=== PATIENT | male | born 1950 | race Caucasian/White ===

== ENCOUNTER 2017-07-13 20:21 | Emergency (ER) | payer BC ==
[2017-07-13] MEDS ORDERED: PROPARACAINE 0.5% OPHTH DROPS 15 ML LEFTEYE STA (20:35)
[2017-07-13 20:36] VITALS: BP 146/77
[2017-07-13] MEDS ORDERED: ERYTHROMYCIN OPHTH OINT 1 GM TUBE LEFTEYE STA (20:46)
--- NOTE | 2017-07-13 20:48 | ED Physician Documentation ---
PD HPI OPHTHO - Stated complaint Stated Complaint: LT EYE PX - Chief complaint Chief Complaint: Heent - History obtained from History obtained from: Patient - History of Present Illness Timing - onset: Other (He was working this evening at home with a saws all around the door frame feels like something stuck in his left eye. His vision is unaffected.) Review of Systems Constitutional: denies: Fever, Chills Eyes: reports: Discharge, Irritation. denies: Loss of vision, Decreased vision , Photophobia Ears: denies: Loss of hearing, Ear pain PD PAST MEDICAL HISTORY - Past Medical History Past Medical History: No - Past Surgical History Past Surgical History: Yes HEENT: Cataracts - Present Medications Home Medications: Ambulatory Orders Medication Instructions Recorded Confirmed Erythromycin Base [Erythromycin] 1 applic OP 5XD 7 Days oint...g. 07/13/17 - Allergies Allergies/Adverse Reactions: Allergies Allergy/AdvReac Type Severity Reaction Status Date / Time No Known Drug Allergies Allergy Verified 07/13/17 20:44 - Social History Does the pt smoke?: No Smoking Status: Never smoker - Immunizations Immunizations are current?: Yes PD ED PE NORMAL - Vitals Vital signs reviewed: Yes - General General: Alert and oriented X 3, No acute distress - HEENT HEENT: PERRL, EOMI, Other (No corneal foreign body or conjunctival foreign body is seen including in the fornices, especially in the upper fornix using an everted lid exam after noting that he does have a skating rink type area fluorescein uptake to the superomedial cornea on the left.) - Neck Neck: Supple, no meningeal sign, No bony TTP - Neuro Neuro: Alert and oriented X 3 - Psych Psych: Normal mood, Normal affect Results - Vitals Vitals: Vital Signs - 24 hr 07/13/17 07/13/17 20:25 20:34 Temperature 36.4 C L Heart Rate 77 Respiratory 16 Rate Blood Pressure 146/77 H O2 Saturation 93 Oxygen O2 Source Room air PD MEDICAL DECISION MAKING - ED course ED course: It looks like he probably had a superior corneal foreign body or conjunctival foreign body that caused an area of skating rink type corneal abrasion with fluorescein uptake but there is no evidence of persistent foreign body. The eye was flushed. Started on erythromycin topical. Departure - Departure Disposition: 01 Home, Self Care Clinical Impression: Corneal abrasion, left Qualifiers: Encounter type: initial encounter Qualified Code(s): S05.02XA - Injury of conjunctiva and corneal abrasion without foreign body, left eye, initial encounter Condition: Good Record reviewed to determine appropriate education?: Yes Instructions: ED Eye Injury Corneal Abrasion Follow-Up: Isaac Cehrry MD [Provider Admit Priv/Credential] - Within 3 Days Prescriptions: Erythromycin Base [Erythromycin] 1 applic OP 5XD 7 Days oint...g. Comments: Your blood pressure was elevated today on check into the emergency department. This does not mean that you have hypertension, it is a common phenomenon to come to the emergency department and have elevated blood pressure. I recommend that you see your primary care physician within the week to have it rechecked when you are feeling better.
== END 2017-07-13 21:07 | disposition home or self-care (01) ==
LOC: ED 20:21
DX: S05.02XA Injury of conjunctiva and corneal abrasion without foreign body, left eye, initial encounter (principal); W20.8XXA Other cause of strike by thrown, projected or falling object, initial encounter; Y92.239 Unspecified place in hospital as the place of occurrence of the external cause; R03.0 Elevated blood-pressure reading, without diagnosis of hypertension
CPT/HCPCS: 99283; J3490

== ENCOUNTER 2022-10-15 14:58 | Emergency (ER) | payer BC ==
[2022-10-15 15:38] LABS: BASOPHILS % (AUTO) 0.3 %; EOSINOPHILS % (AUTO) 0.3 %; HCT - HEMATOCRIT 42.6 % (42.0-52.0); HGB - HEMOGLOBIN 14.4 g/dL (14.0-18.0); LYMPHOCYTES # (AUTO) 1.2 10^3/uL (1.5-3.5); LYMPHOCYTES % (AUTO) 11.9 %; MEAN CORPUSCULAR HEMOGLOBIN 31.9 pg (27.0-31.0); MEAN CORPUSCULAR HGB CONC 33.8 g/dL (32.0-36.0); MEAN CORPUSCULAR VOLUME 94.5 fL (80.0-94.0); MEAN PLATELET VOLUME 9.3 fL (7.4-11.4); MONOCYTES # (AUTO) 0.9 10^3/uL (0.0-1.0); MONOCYTES % (AUTO) 8.9 %; NEUTROPHILS # (AUTO) 7.6 10^3/uL (1.5-6.6); NEUTROPHILS % (AUTO) 78.3 %; PLT - PLATELET COUNT 204 10^3/uL (130-450); RED BLOOD COUNT 4.51 10^6/uL (4.70-6.10); RED CELL DISTRIBUTION WIDTH 12.3 % (12.0-15.0); WHITE BLOOD COUNT 9.7 x10^3/uL (4.8-10.8)
[2022-10-15 15:51] LABS: ALBUMIN 4.3 g/dL (3.2-5.5); ALBUMIN/GLOBULIN RATIO 1.7 (1.0-2.2); BILIRUBIN,TOTAL 0.6 mg/dL (0.2-1.0); CREATININE 1.3 mg/dL (0.6-1.2); POTASSIUM 3.6 mmol/L (3.5-5.0); TOTAL PROTEIN 6.9 g/dL (6.7-8.2)
[2022-10-15] MEDS ORDERED: ONDANSETRON 4 MG/2 ML VIAL IVP STA (16:08)
[2022-10-15] MEDS ORDERED: HYDROmorphone 1 MG/ML CARPUJECT IVP STA (16:08)
[2022-10-15] MEDS ORDERED: KETOROLAC 30 MG/ML VIAL IVP STA (16:08)
[2022-10-15] MEDS ORDERED: SODIUM CHLORIDE 0.9% 1,000 ML IV STA (16:08)
--- NOTE | 2022-10-15 16:11 | ED Physician Documentation ---
History of Present Illness - Stated complaint Stated Complaint: MALE /NAUSE - Chief complaint Chief Complaint: Abd Pain - History obtained from History obtained from: Patient - History of Present Illness Timing: Today Pain level max: 7 Pain level now: 6 - Additonal information Additional information: Patient is a 72-year-old male who presents to the emergency department with left flank pain that started today. He has a history of multiple renal stones in the past. He states that this feels similar. Has had lithotripsy in the past. No hematuria. No dysuria. No fevers. Patient states that he used to have a urologist in [place], but she moved away. Does not currently have a urologist. Review of Systems Constitutional: denies: Fever, Chills GI: denies: Vomiting, Diarrhea, Hematemesis, Bloody / black stool : denies: Dysuria, Frequency, Hesitancy Skin: denies: Rash Musculoskeletal: denies: Neck pain, Back pain Neurologic: denies: Headache PD PAST MEDICAL HISTORY - Past Medical History Past Medical History: No - Past Surgical History Past Surgical History: Yes HEENT: Cataracts - Present Medications Home Medications: Ambulatory Orders Medication Instructions Recorded Confirmed Erythromycin Base [Erythromycin] 1 applic OP 5XD 7 Days oint...g. 07/13/17 HYDROcod/ACETAM 5/325 [Dover 5/325] 1 - 2 ea PO Q6H PRN #14 tablet 10/15/22 Ibuprofen [Motrin] 800 mg PO Q8H PRN #30 tablet 10/15/22 Ondansetron Odt [Zofran] 4 mg TL Q6H PRN #10 tablet 10/15/22 Tamsulosin [Flomax] 0.4 mg PO DAILY #14 cap 10/15/22 - Allergies Allergies/Adverse Reactions: Allergies Allergy/AdvReac Type Severity Reaction Status Date / Time No Known Drug Allergies Allergy Verified 10/15/22 15:07 - Living Situation Living Situation: reports: With family Living Arrangement: reports: At home - Social History Does the pt smoke?: No Smoking Status: Never smoker - Immunizations Immunizations are current?: Yes PD ED PE NORMAL - Vitals Vital signs reviewed: Yes - General General: Alert and oriented X 3, No acute distress - HEENT HEENT: Moist mucous membranes - Neck Neck: Supple, no meningeal sign - Cardiac Cardiac: RRR, Strong equal pulses - Respiratory Respiratory: No respiratory distress, Clear bilaterally - Abdomen Abdomen: Soft, Non tender, Non distended - Back Back: No CVA TTP, No spinal TTP - Derm Derm: Warm and dry - Extremities Extremities: No edema - Neuro Neuro: Alert and oriented X 3 - Psych Psych: Normal mood, Normal affect Results - Vitals Vitals: Vital Signs - 24 hr 10/15/22 10/15/22 15:04 17:37 Temperature 36.4 C L 36.8 C Heart Rate 54 L 54 L Respiratory 20 16 Rate Blood Pressure 168/78 H 134/70 H O2 Saturation 96 96 Oxygen O2 Source Room air - Labs Labs: Laboratory Tests 10/15/22 10/15/22 10/15/22 15:30 15:30 16:31 WBC 9.7 RBC 4.51 L Hgb 14.4 Hct 42.6 MCV 94.5 H MCH 31.9 H MCHC 33.8 RDW 12.3 Plt Count 204 MPV 9.3 Neut # (Auto) 7.6 H Lymph # (Auto) 1.2 L Elliott # (Auto) 0.9 Eos # (Auto) 0.0 Baso # (Auto) 0.0 Absolute Nucleated RBC 0.00 Nucleated RBC % 0.0 Sodium 137 Potassium 3.6 Chloride 104 Carbon Dioxide 22 Anion Gap 11.0 BUN 22 H Creatinine 1.3 H Estimated GFR (MDRD) 54 L Glucose 165 H Calcium 9.0 Total Bilirubin 0.6 AST 24 ALT 36 Alkaline Phosphatase 51 Total Protein 6.9 Albumin 4.3 Globulin 2.6 Albumin/Globulin Ratio 1.7 Lipase 35 Urine Color YELLOW Urine Clarity CLEAR Urine pH 5.5 Ur Specific Institute >=1.030 H Urine Protein TRACE Urine Glucose (UA) NEGATIVE Urine Ketones NEGATIVE Urine Occult Blood MODERATE H Urine Nitrite NEGATIVE Urine Bilirubin NEGATIVE Urine Urobilinogen 0.2 (NORMAL) Ur Leukocyte Esterase NEGATIVE Urine RBC 6-10 H Urine WBC 0-3 Ur Squamous Epith Cells RARE Squamous Urine Bacteria Rare Urine Mucus Few Strands Ur Microscopic Review INDICATED Urine Culture Comments NOT INDICATED - Rads (name of study) CT abd/pelvis Relevant Findings:: Final report received, See rad report PD Medical Decision Making - ED course Complexity details: reviewed results, re-evaluated patient, considered differential, d/w patient ED course: 72-year-old male with a history of kidney stones presents to the emergency department left flank pain. His pain resolved with Dilaudid, Toradol, IV fluids. Nausea resolved with Zofran. Laboratory testing does not show any significant abnormalities. CT scan shows a ureteral stone at the left UVJ, consistent with his symptoms. There also appear to be stones at the right UVJ, unclear if these are acute or chronic. Does not have significant hydronephrosis on that side. He will follow-up with his doctor for referral to urology. We will place on pain medication, Flomax for home. Patient counseled regarding signs and symptoms for which I believe and urgent re-evaluation would be necessary. Patient with good understanding of and agreement to plan and is comfortable going home at this time This document was made in part using voice recognition software. While efforts are made to proofread this document, sound alike and grammatical errors may occur. IMPRESSION: 1. 3 mm left UVJ stone with mild to moderate left-sided hydronephrosis and hydroureter and left perinephric fat stranding. Nonobstructing stone also seen in upper pole left kidney. 2. 8 x 7 x 14 mm distal right ureteral stone with mild right-sided hydronephrosis or hydroureter and mild right perinephric fat stranding. 3. No gross abnormality is seen in urinary bladder. 4. No bowel obstruction or abnormal bowel wall thickening. No free fluid of free air. Departure - Departure Disposition: 01 Home, Self Care Clinical Impression: Ureteral stone Condition: Good Instructions: ED Stone Renal W Colic Follow-Up: ERWIN PAZ MD [Primary Care Provider] - Within 1 week Prescriptions: Tamsulosin [Flomax] 0.4 mg PO DAILY #14 cap Ibuprofen [Motrin] 800 mg PO Q8H PRN #30 tablet PRN Reason: PAIN &/OR FEVER HYDROcod/ACETAM 5/325 [Dover 5/325] 1 - 2 ea PO Q6H PRN #14 tablet PRN Reason: Pain Ondansetron Odt [Zofran] 4 mg TL Q6H PRN #10 tablet PRN Reason: Nausea / Vomiting Comments: Please follow-up with your doctor for further care. It is important that you see a urologist as the ureteral stones on the right side will likely need to be removed. Please return for increasing pain, fevers or vomiting. Of note there is no urology at this hospital currently. The closest urologist to you are [facility] in [place] and [facility] in [place]. Your prescription was sent to [facility] in [place] I am prescribing a short course of narcotic pain medication for you. These are potentially dangerous and addictive medications that should be used carefully. These medications may constipate you. Take an [id number] stool softener (docusate) twice daily with plenty of water while taking these medications. If you go 24 hours without a bowel movement, take [id number]-[id number] miralax, per package instructions. Do not drink or drive while taking these medications. If you received narcotic or sedating medications while in the emergency department, do not drive for 24 hours. Store this medication in a safe, secure place and out of reach of children. It is a violation of federal law to give or sell this medication to another person or to use in a manner other than prescribed. The ED will not refill narcotic prescriptions, including prescriptions lost or stolen. To dispose of unwanted medications: 1. [facility] at [address] in [place] has a medication drop box. They accept prescription medications (in pill form) Friday through Friday 9:00 a.m. to 5:00 p.m. 2. The [facility] accepts prescription medications (in pill form only) for disposal year round. Call for more information. 3. Contact the [facility] for the next [facility] sponsored prescription drug collection event. , [phone], or [phone]; ABDOMEN: Lung bases: Lung bases are clear. Heart size is normal. Solid organs: Liver and spleen are normal in size. Gallbladder is within normal limits. Pancreas is normal in contours. No adrenal nodules. Kidneys are normal in size. Mild left perinephric fat stranding is seen. There is moderate left-sided hydronephrosis. A nonobstructing stone in upper pole of left kidney measures 3 mm in size is seen. There is left hydroureter with periureteral fat stranding extending to the level of left UVJ. 3 mm left UVJ stone is seen. Mild right perinephric fat stranding is seen. Mild prominence of right renal collecting system and right ureter is also noted. 8 x 7 x 14 mm calcification is noted within distal right ureter just proximal to the right UVJ and measures 1610 Hounsfield unit in density concerning for distal right ureteral stone. Peritoneum and bowel: Unenhanced bowel loops demonstrate normal wall thickness and caliber. No free fluid or air. Nodes and vessels: No retroperitoneal or mesenteric adenopathy by size criteria. Aorta and inferior vena cava are normal in caliber. Miscellaneous: No ventral hernias. PELVIS: Genitourinary: Bladder wall thickness is normal. Miscellaneous: No inguinal hernias or adenopathy. Bones: No suspicious bony lesions. No vertebral body compression fractures. 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 IMPRESSION: 1. 3 mm left UVJ stone with mild to moderate left-sided hydronephrosis and hydroureter and left perinephric fat stranding. Nonobstructing stone also seen in upper pole left kidney. 2. 8 x 7 x 14 mm distal right ureteral stone with mild right-sided hydronephrosis or hydroureter and mild right perinephric fat stranding. 3. No gross abnormality is seen in urinary bladder. 4. No bowel obstruction or abnormal bowel wall thickening. No free fluid of free air. Discharge Date/Time: 10/15/22 17:45
--- NOTE | 2022-10-15 16:39 | CT Report ---
PROCEDURE: ABDOMEN/PELVIS WO INDICATIONS: L flank pain, h/o renal stones TECHNIQUE: Noncontrast 5 mm thick sections acquired from the diaphragms to the symphysis. 5 mm coronal and sagi ttal reformats were then performed. For radiation dose reduction, the following was used: automated exposure control, adjustment of mA and/or kV according to patient size. COMPARISON: None. FINDINGS: Image quality: Excellent. ABDOMEN: Lung bases: Lung bases are clear. Heart size is normal. Solid organs: Liver and spleen are normal in size. Gallbladder is within normal limits. Pancreas i s normal in contours. No adrenal nodules. Kidneys are normal in size. Mild left perinephric fat str anding is seen. There is moderate left-sided hydronephrosis. A nonobstructing stone in upper pole of left kidney measures 3 mm in size is seen. There is left hydroureter with periureteral fat stranding extending to the level of left UVJ. 3 mm left UVJ stone is seen. Mild right perinephric fat stranding is seen. Mild prominence of right renal collecting system and right ureter is also noted. 8 x 7 x 14 mm calcification is noted within distal right ureter just proximal to the right UVJ and measures 161 0 Hounsfield unit in density concerning for distal right ureteral stone. Peritoneum and bowel: Unenhanced bowel loops demonstrate normal wall thickness and caliber. No free fluid or air. Nodes and vessels: No retroperitoneal or mesenteric adenopathy by size criteria. Aorta and inferior vena cava are normal in caliber. Miscellaneous: No ventral hernias. PELVIS: Genitourinary: Bladder wall thickness is normal. Miscellaneous: No inguinal hernias or adenopathy. Bones: No suspicious bony lesions. No vertebral body compression fractures. Degenerative disc dise ase throughout thoracic and lumbar spine is seen. IMPRESSION: 1. 3 mm left UVJ stone with mild to moderate left-sided hydronephrosis and hydroureter and left perin ephric fat stranding. Nonobstructing stone also seen in upper pole left kidney. 2. 8 x 7 x 14 mm distal right ureteral stone with mild right-sided hydronephrosis or hydroureter and mild right perinephric fat stranding. 3. No gross abnormality is seen in urinary bladder. 4. No bowel obstruction or abnormal bowel wall thickening. No free fluid of free air. Reviewed by: Orion Mann MD on 10/15/2022 3:38 PM AKDT Approved by: Orion Mann MD on 10/15/2022 3:38 PM AKDT Station ID: [id number]
[2022-10-15 16:43] LABS: BILIRUBIN,URINE NEGATIVE (NEGATIVE); GLUCOSE, URINE (UA) NEGATIVE (NEGATIVE); KETONES,URINE (UA) NEGATIVE (NEGATIVE); LEUKOCYTE ESTERASE, URINE NEGATIVE (NEGATIVE); NITRITE,URINE NEGATIVE (NEGATIVE); OCCULT BLOOD,URINE MODERATE (NEGATIVE); PH,URINE 5.5 PH (5.0-7.5); PROTEIN,URINE TRACE mg/dL (NEGATIVE); UROBILINOGEN,URINE 0.2 (NORMAL) E.U./dL (NORMAL)
[2022-10-15 16:52] LABS: CLARITY,URINE CLEAR (CLEAR)
[2022-10-15 17:03] LABS: BACTERIA,URINE Rare /HPF (None Seen); SQUAMOUS EPITHELIAL CELL,UR RARE Squamous (<= Few); WBC,URINE 0-3 /HPF (0-3)
[2022-10-15 17:04] LABS: MUCUS,URINE Few Strands
[2022-10-15 17:37] VITALS: BP 134/70
== END 2022-10-15 17:45 | disposition home or self-care (01) ==
LOC: ED 14:58
DX: N20.1 Calculus of ureter (principal); Z87.442 Personal history of urinary calculi
CPT/HCPCS: 36415; 74176; 80053; 81001; 83690; 85025; 96374; 96375; 99284; J1170; 81003; 87086